=== PATIENT | male | born 1950 | race Asian ===

== ENCOUNTER 2018-05-12 14:54 | Emergency (ER) | payer OTHER ==
[~2018-05-12] VITALS: Ht 172.7 cm; Wt 79.8 kg
[2018-05-12 14:59] VITALS: Ht 172.7 cm; Wt 79.8 kg
[2018-05-12 16:41] LABS: BASOPHIL % 0.3 % (0-2); PLATELET COUNT 206 x10^3mcL (130-400); RED CELL DISTRIBUTION WIDTH 12.9 % (11.5-14.5)
[2018-05-12 16:44] LABS: CALCIUM 9.1 mg/dL (8.5-10.1); CARBON DIOXIDE 25.6 mmol/L (21-32); CREATININE SERUM 2.3 mg/dL (0.7-1.3); POTASSIUM SERUM 3.8 mmol/L (3.5-5.1)
[2018-05-12 16:49] LABS: BILIRUBIN TOTAL 0.8 mg/dL (0.20-1.00); URIC ACID 6.4 mg/dL (3.5-7.2)
[2018-05-12 16:50] LABS: ALBUMIN 3.3 g/dL (3.4-5.0); TOTAL PROTEIN, SERUM 8.6 g/dL (6.4-8.2)
[2018-05-12 19:17] VITALS: BP 130/78
== END 2018-05-12 19:17 | disposition home or self-care (01) ==
LOC: ED 14:54
PROVIDERS: Emergency Medicine
DX: M10.061 Idiopathic gout, right knee (principal); E11.22 Type 2 diabetes mellitus with diabetic chronic kidney disease; I12.9 Hypertensive chronic kidney disease with stage 1 through stage 4 chronic kidney disease, or unspecified chronic kidney disease; N18.9 Chronic kidney disease, unspecified; E11.65 Type 2 diabetes mellitus with hyperglycemia; M25.472 Effusion, left ankle
CPT/HCPCS: 36415; Q0092

== ENCOUNTER 2019-02-09 12:03 | Emergency (ER) | payer OTHER ==
[~2019-02-09] VITALS: Ht 175.3 cm; Wt 83.1 kg
[2019-02-09 12:10] VITALS: Ht 175.3 cm; Wt 83.1 kg
[2019-02-09 13:11] VITALS: BP 123/69
== END 2019-02-09 13:43 | disposition home or self-care (01) ==
LOC: ED 12:03
DX: M10.9 Gout, unspecified (principal); I10 Essential (primary) hypertension; E11.9 Type 2 diabetes mellitus without complications
CPT/HCPCS: 82962

== ENCOUNTER 2019-11-23 09:24 | Emergency (ER) | payer OTHER ==
[~2019-11-23] VITALS: Ht 182.9 cm; Wt 82.6 kg
[2019-11-23 09:32] VITALS: Ht 182.9 cm; Wt 82.6 kg
[2019-11-23 12:36] VITALS: BP 125/76
== END 2019-11-23 12:36 | disposition home or self-care (01) ==
LOC: ED 09:24
DX: M10.071 Idiopathic gout, right ankle and foot (principal); M10.072 Idiopathic gout, left ankle and foot; I10 Essential (primary) hypertension; E11.9 Type 2 diabetes mellitus without complications
CPT/HCPCS: J1885